=== PATIENT | male | born 1945 | race Caucasian/White ===

== ENCOUNTER 2021-03-12 10:29 | Outpatient (CLI) | payer MEDICARE ==
[~2021-03-12 10:29] MED LIST: ALBU8.5H5 INH; LISI40TA9 PO; PRAV40TA2 PO; PRED20TA PO
== END 2021-03-12 23:59 | disposition home or self-care (01) ==
LOC: CFH 10:29
PROVIDERS: ATTEND Family Medicine
DX: Z02.9 Encounter for administrative examinations, unspecified (principal)

== ENCOUNTER → 2021-05-24 | Outpatient (CLI) | payer MEDICARE | END | disposition home or self-care (01) | LOC: RAD 09:54 | PROVIDERS: ATTEND Nurse Practitioner Family | DX: R91.8 Other nonspecific abnormal finding of lung field (principal) | CPT/HCPCS: 71250 ==

== ENCOUNTER 2021-06-09 07:57 | Outpatient (CLI) | payer MEDICARE | END 2021-06-09 23:59 | disposition home or self-care (01) | LOC: PETCFH 07:57 | PROVIDERS: ATTEND Nurse Practitioner Family | DX: R91.8 Other nonspecific abnormal finding of lung field (principal); N28.1 Cyst of kidney, acquired | CPT/HCPCS: 78815; A9552 ==